=== PATIENT | female | born 2000 | race Caucasian/White ===

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

== ENCOUNTER 2023-10-10 07:44 | Emergency (ER) | payer OTHER ==
[~2023-10-10] VITALS: Ht 162.6 cm; Wt 62.1 kg
[2023-10-10 08:12] VITALS: BP 119/71
[2023-10-10] MEDS ORDERED: IBUPROFEN 800 MG TAB PO ONE (08:15)
== END 2023-10-10 08:12 | disposition home or self-care (01) ==
LOC: ED 07:44
DX: M54.50 Low back pain, unspecified (principal)
CPT/HCPCS: 99283; A9270

== ENCOUNTER 2023-12-03 15:33 | Emergency (ER) | payer OTHER ==
[~2023-12-03] VITALS: Ht 162.6 cm; Wt 63.3 kg
--- OUTSIDE RECORDS SUMMARY | ~2023-12-03 | XMS | Continuity of Care Document ---
Demographics + + + | Address | [address] | | | [place] [address] | + + + | Preferred Language | Unknown | + + + | Marital Status | Never | + + + | Yazidi Affiliation | Unknown | + + + | Race | White | + + + | Ethnic Group | Not or | + + + Author + + + | Author | [facility] | + + + | Organization | [facility] | + + + | Address | [address] | | | [place] [address] | + + + | Phone | | + + + Care Team Providers + + + + | Care T[employer] Service Supervisor Name | Role | Phone | + + + + Unavailable | Unavailable | + + + + Unavailable | Unavailable | + + + + Allergies No information. Encounters No information. Functional Status No information. Immunizations + + + + | date | description | facility | + + + + | 2023-11-02 00:00 | FHA Tdap (Adacel) | [facility] | + + + + Medications + + + + | date | description | facility | + + + + | 2023-11-02 00:00 | traZODone HCl 100 MG Oral | [facility] | | | Tablet | | + + + + | 2023-11-02 00:00 | Sertraline HCl 100 MG Oral | [facility] | | | Tablet | | + + + + | 2023-11-02 00:00 | sertraline 100 MG Oral | [facility] | | | Tablet | | + + + + | 2023-11-02 00:00 | Adacel | [facility] | + + + + | 2023-11-02 00:00 | trazodone hydrochloride | [facility] | | | 100 MG Oral Tablet | | + + + + Problems No information. Procedures + + + + | date | description | facility | + + + + | 2023-11-02 00:00 | Immunization | [facility] | | | Administration; 1 Vaccine | | + + + + | 2023-11-02 00:00 | Tetanus; Diptheria and | [facility] | | | Pertussis | | | | (TdaP);Boostrix/Adacel | | + + + + Results/Labs No information. Social History + + + + | date | description | facility | + + + + | 2023-11-02 00:00 | Unknown if ever smoked | [facility] | + + + + | 2023-11-11 00:00 | Unknown if ever smoked | [facility] | + + + + Vital Signs + + + + + | date | measurement | value | units | + + + + + | 2023-11-02 00:00 | BMI | 23.9 | 1 | + + + + + | 2023-11-02 00:00 | BP_diastolic | 68 | mmHg | + + + + + | 2023-11-02 00:00 | BP_systolic | 112 | mmHg | + + + + + | 2023-11-02 00:00 | BSA | 1.7 | m2 | + + + + + | 2023-11-02 00:00 | heart_rate | 1|1| | completed | + + + + + | 2023-11-02 00:00 | heart_rate | 70 | /min | + + + + + | 2023-11-02 00:00 | height_metric | 161.93 | cm | + + + + + | 2023-11-02 00:00 | height_standard | 63.75 | in | + + + + + | 2023-11-02 00:00 | o2_saturation | 99 | % | + + + + + | 2023-11-02 00:00 | temperature_metric | 36.22 | C | | | | | | + + + + + | 2023-11-02 00:00 | | 97.2 | F | | | temperature_standar | | | | | d | | | + + + + + | 2023-11-02 00:00 | weight_metric | 62.6 | kg | + + + + + | 2023-11-02 00:00 | weight_standard | 138.01 | lb | + + + + +"
[2023-12-03] MEDS ORDERED: SERTRALINE HCL100 MG PO (15:47)
[2023-12-03] MEDS ORDERED: DROSPIRENONE-E1 EACH PO (15:48)
[2023-12-03] MEDS ORDERED: TRAZODONE HCL100 MG PO (15:48)
[2023-12-03 17:30] VITALS: BP 114/74
== END 2023-12-03 17:30 | disposition home or self-care (01) ==
LOC: ED 15:33
DX: S06.0X0A Concussion without loss of consciousness, initial encounter (principal); Z79.899 Other long term (current) drug therapy; W20.8XXA Other cause of strike by thrown, projected or falling object, initial encounter
CPT/HCPCS: 99283